=== PATIENT | male | born 1995 | race American Indian/Alaskan Native ===

== ENCOUNTER 2021-03-05 10:10 | Emergency (ER) | payer MEDICAID, OTHER ==
[2021-03-05] MEDS ORDERED: Lidocaine 1% 30 ML SDV INJECT ONE (10:45)
[2021-03-05 10:50] VITALS: BP 155/101; PULSE 84
[2021-03-05] MEDS ORDERED: Bacitracin Oint 1 GM U/D Packet TOP ONE (11:44)
== END 2021-03-05 11:54 | disposition home or self-care (01) ==
LOC: DL.ED 10:10
DX: S01.81XA Laceration without foreign body of other part of head, initial encounter (principal); W10.9XXA Fall (on) (from) unspecified stairs and steps, initial encounter; Y93.01 Activity, walking, marching and hiking; Y92.009 Unspecified place in unspecified non-institutional (private) residence as the place of occurrence of the external cause
CPT/HCPCS: 12011; 99283-25

== ENCOUNTER 2024-12-14 12:16 | Emergency (ER) | payer SELFPAY ==
[2024-12-14 12:39] LABS: BASOPHILS PERCENT AUTO 0.2 % (0.0-1.0); EOSINOPHILS PERCENT AUTO 1.0 % (1.0-3.0); LYMPHOCYTES PERCENT AUTO 15.5 % (20.5-50.1); MONOCYTES PERCENT AUTO 8.8 % (2-8); NEUTROPHILS PERCENT AUTO 74.5 % (42.2-75.2); PLATELET COUNT,PLT 158 10^3/uL (150-450); RED BLOOD CELL COUNT 4.95 10^6/uL (4.6-6.2); WHITE BLOOD CELL COUNT,WBC 8.3 10^3/uL (5.0-10.0)
[2024-12-14 12:56] LABS: BLOOD UREA NITROGEN,BUN 10.0 mg/dL (7-18); CARBON DIOXIDE,CO2 30.0 mmol/L (21-32); CHLORIDE,CL 103.0 mmol/L (98-107); CREATININE 0.79 mg/dL (0.70-1.30); EST CRCL DRUG DOSING (CG) 160.41 mL/min; GLUCOSE RANDOM 99.0 mg/dL (70-99); POTASSIUM,K 3.9 mmol/L (3.5-5.1); SODIUM,NA 141.0 mmol/L (136-145)
[2024-12-14 12:57] LABS: ESTIMATED GFR 123.0 mL/min (>=60)
[2024-12-14 13:19] VITALS: BP 147/106; PULSE 86
== END 2024-12-14 13:39 | disposition home or self-care (01) ==
LOC: DL.ED 12:16
DX: L03.011 Cellulitis of right finger (principal); I10 Essential (primary) hypertension; F17.200 Nicotine dependence, unspecified, uncomplicated
CPT/HCPCS: 36415; 73140-F5; 73140-F7; 80048; 85025; 96374; 99283; 99283-25; J0690